=== PATIENT | female | born 2000 | race Caucasian/White ===

== ENCOUNTER 2020-03-13 19:34 | Emergency (ER) | payer BC ==
[2020-03-13] MEDS ORDERED: IPRATROPIUM/ALBUTEROL 0.5-2.5 MG/3 ML AMPUL NEB ONE (19:38)
[2020-03-13] MEDS ORDERED: PREDNISONE 20 MG TABLET PO ONE (19:38)
--- NOTE | 2020-03-13 19:49 | ER Document Report ---
ED Respiratory Problem - General Stated Complaint: SHORTNESS OF BREATH Time Seen by Provider: 03/13/20 19:38 Mode of Arrival: Medic - HPI Patient complains to provider of: Short of breath Notes: Patient here with complaints of feeling short of breath. The patient states she has a history of asthma. She states she was at work when she started to feel short of breath and have some tightness in her chest. No fever. No cough. She states that she had Covid a few weeks ago. She denies any abdominal pain. No nausea, vomiting, diarrhea. No numbness, tingling, weakness. No syncope. Nothing seems to make symptoms better or worse. No other specific complaints at this time. - Related Data Allergies/Adverse Reactions: No Known Allergies Allergy (Verified 03/13/20 20:43) Past Medical History - Social History Smoking Status: Never Smoker Frequency of alcohol use: None Drug Abuse: None Family History: Reviewed & Not Pertinent Review of Systems - Review of Systems -: Yes All other systems reviewed and negative Physical Exam - Notes Notes: GENERAL: alert, cooperative, nontoxic, no distress. HEAD: normocephalic, atraumatic EYES: conjunctiva pink without discharge, no external redness or swelling. EARS: no external swelling, no external redness, no mastoid redness, swelling, tenderness. Ear canals are clear without swelling or drainage. TMs pearly rivas, no redness, no bulging, normal landmarks, no perforation. NOSE: atraumatic, no external swelling. clear rhinorrhea noted. MOUTH/THROAT: mucous membranes moist and pink, posterior pharynx without erythema, swelling, exudate. No trismus or drooling. Voice is normal, no stridor. NECK: soft, supple, full range of motion, no meningismus. CHEST: Patient with very noisy inspiration. She is noted to stop while she takes a drink or is speaking. Lungs are otherwise clear and equal with good air movement. No hypoxia. No crackles. CARDIAC: regular rate and rhythm, no murmur EXTREMITIES: full range of motion of all extremities. No redness, no swelling. NEURO: alert and oriented A&O3, no focal deficits, full range of motion of all extremities. PYSCH: appropriate mood, affect. Patient is cooperative. SKIN: pink, warm, dry, no rash. Course - Re-evaluation Re-evalutation: 03/13/20 20:33 Patient feeling significantly better at this time. Breathing has completely resolved. Lungs are clear and equal throughout with no noisy inspiration. Cur rently awaiting chest x-ray results. We will continue to monitor. 03/13/20 20:44 Patient resting comfortably this time. Abnormal results with the patient. Questions of been answered. Will discharge home. Patient is nontoxic-appearing with stable vitals. She arrives here from work after feeling short of breath and having what she calls some wheezing and an asthma attack while at work. When she arrived, she was noted to have loud inspiratory breathing sounds. She was moving good air and she was not hypoxic. She was given a breathing treatment and prednisone with significant improvement of her breath sounds in her symptoms. Chest x-ray shows mild cardiomegaly with no acute focal infiltrates or abnormalities per the radiologist. I discussed this with the patient and instructed her that she needs to have this reevaluated with her primary care doctor as this could just be related to positioning. Patient has no leg swelling or signs of congestive heart failure on exam. This point patient will be discharged home with prescription for prednisone and albuterol. Instructions to follow-up with her primary care doctor at the next available appointment. Follow-up sooner for worsening symptoms, high fever, persistent vomiting, chest pain, or for any further concerns. The patient's emergency department workup and current diagnosis were explained to the patient and or family. Follow-up instructions were provided. Medications if prescribed were discussed. Instructions for when to return to the emergency department including specific worrisome symptoms were discussed with the patient and/or family. - Laboratory Results Critical Laboratory Results Reviewed: No Critical Results - Radiology Results Critical Radiology Results Reviewed: No Critical Results Discharge - Discharge Clinical Impression: SOB (shortness of breath) Asthma exacerbation Qualifiers: Asthma severity: moderate Asthma persistence: unspecified Qualified Code(s): J45.901 - Unspecified asthma with (acute) exacerbation Condition: Stable Disposition: HOME, SELF-CARE Instructions: Asthma ([facility]) Additional Instructions: Take medications as prescribed. Drink lots of fluids. Follow-up with your doctor at the next available appointment. Your heart may have looked slightly enlarged on your chest x-ray, this should be rechecked. Follow-up sooner for severe chest pain, significant shortness of breath, high fever, persistent vomiting, any further concerns. Prescriptions: Prednisone [Deltasone 20 mg Tablet] 40 mg PO DAILY #10 tablet Albuterol Sulfate [Proair HFA Inhalation Aerosol 8.5 gm MDI] 2 puff IH Q4H PRN #1 mdi PRN Reason: Forms: Return to Work Referrals: [facility] [Provider Group] - Follow up as needed
--- NOTE | 2020-03-13 20:36 | RADIOLOGY REPORT (SQ) ---
EXAM DESCRIPTION: XR CHEST 1 VIEW COMPLETED DATE/TME: 03/13/2020 20:02 CLINICAL HISTORY: 19 years, Female, SOB, Wheezing COMPARISON: None. TECHNIQUE: Upright portable chest x-ray FINDINGS: Mild cardiomegaly. No suspicious mediastinal widening. No acute lung pleural bone abnormalities. IMPRESSION: Mild cardiomegaly without acute findings.
[2020-03-13 20:54] VITALS: BP 131/74
== END 2020-03-13 21:01 | disposition home or self-care (01) ==
LOC: ER 19:34
DX: J45.901 Unspecified asthma with (acute) exacerbation (principal); R07.89 Other chest pain; Z11.52 Encounter for screening for COVID-19
CPT/HCPCS: 94640; 99283; 71045; J7512